=== PATIENT | female | born 1985 | race Caucasian/White ===

== ENCOUNTER 2018-06-18 17:08 | Inpatient (IN) | payer MEDICAID ==
[2018-06-18 20:58] LABS: ADD MAN DIFF? NO
[2018-06-18 20:59] LABS: BASOPHILS % 0.4 % (0.0-2.0); EOSINOPHILS # 0.1 10^3/ul (0.0-0.5); EOSINOPHILS % 1.1 % (0.0-7.0); HEMATOCRIT 36.7 % (37.0-47.0); HEMOGLOBIN 12.4 g/dl (12.0-16.0); LYMPHOCYTES # 1.8 10^3/ul (0.8-2.9); LYMPHOCYTES % 21.7 % (15.0-51.0); MEAN CORPUSCULAR HGB CONC 33.8 g/dl (32.0-37.0); MEAN CORPUSCULAR VOLUME 91.8 fl (82.0-101.0); MONOCYTE # 0.6 10^3/ul (0.3-0.9); MONOCYTES % 6.7 % (0.0-11.0); NEUTROPHIL # 5.8 10^3/ul (1.6-7.5); NEUTROPHILS % 69.6 % (39.0-77.0); PLATELET COUNT 194 10^3/UL (140-415); RED CELL DISTRIBUTION WIDTH 13.3 % (11.5-14.5)
[2018-06-18 20:59] LABS: WHITE BLOOD COUNT 8.3 10^3/ul (4.8-10.8)
[2018-06-18] MEDS ORDERED: METHYLERGONOVINE 0.2 MG INJ IM (21:00)
[2018-06-18] MEDS ORDERED: MISOPROSTOL 200 MCG TAB PR (21:00)
[2018-06-18] MEDS ORDERED: OXYTOCIN 30 UNITS/LR 500 ML IV (21:00)
[2018-06-18] MEDS ORDERED: LIDOCAINE 1% (MPF) 30 ML INJ INJ (21:00)
[2018-06-18] MEDS ORDERED: MISOPROSTOL 100 MCG TAB PO (21:00)
[2018-06-18] MEDS ORDERED: CARBOPROST 250 MCG INJ IM (21:00)
[2018-06-18] MEDS: MISOPROSTOL 50 MCG CAPSULE PO (21:02)
[2018-06-18 21:07] LABS: INR 0.89; PROTIME 12.1 Sec (11.9-14.9); PT RATIO 0.9
[2018-06-18 21:08] LABS: PARTIAL THROMBOPLASTIN TIME 27.5 Sec (23.0-35.0)
[2018-06-18] MEDS: LACTATED RINGER'S 1,000 ML IV (21:09)
[2018-06-19] MEDS: MISOPROSTOL 50 MCG CAPSULE PO ×2 (01:03→05:10)
[2018-06-19] MEDS: LACTATED RINGER'S 1,000 ML IV ×3 (03:44→11:34)
[2018-06-19] MEDS ORDERED: FENTAnyl 2MCG/ML-ROPIV 0.2% 100 ML (11:02)
[2018-06-19] MEDS ORDERED: FENTAnyl 2MCG/ML-ROPIV 0.2% 100 ML BAG EPI (11:30)
[2018-06-19] MEDS ORDERED: NALOXONE (0.4 MG/ML) INJ IV (11:30)
[2018-06-19] MEDS ORDERED: NACL 0.9% 3 ML SYG IV (14:30)
[2018-06-19] MEDS ORDERED: MISOPROSTOL 200 MCG TAB PR (14:30)
[2018-06-19] MEDS ORDERED: OXYTOCIN 30 UNITS/LR 500 ML IV (14:30)
[2018-06-19] MEDS ORDERED: CARBOPROST 250 MCG INJ IM (14:30)
[2018-06-19] MEDS: OXYTOCIN 30 UNITS/LR 500 ML IV ×3 (14:45→20:48)
[2018-06-19] MEDS: OXYCODONE/ASPIRIN (4.88/325) TAB PO (20:47)
[2018-06-19] MEDS: IBUPROFEN 600 MG TAB PO ×2 (20:47→23:38)
[2018-06-19 22:14] LABS: RAPID PLASMA REAGIN NONREACTIVE (NR)
[2018-06-19] MEDS: SENNA/DOCUSATE NA (8.6MG/50MG) TAB PO (23:43)
[2018-06-20] MEDS: IBUPROFEN 600 MG TAB PO ×3 (05:40→17:23)
[2018-06-20 07:34] LABS: ADD MAN DIFF? NO
[2018-06-20 07:43] LABS: WHITE BLOOD COUNT 10.1 10^3/ul (4.8-10.8)
[2018-06-20 07:43] LABS: BASOPHILS % 0.2 % (0.0-2.0); EOSINOPHILS # 0.1 10^3/ul (0.0-0.5); EOSINOPHILS % 1.1 % (0.0-7.0); HEMOGLOBIN 12.1 g/dl (12.0-16.0); LYMPHOCYTES # 1.5 10^3/ul (0.8-2.9); LYMPHOCYTES % 14.5 % (15.0-51.0); MEAN CORPUSCULAR HEMOGLOBIN 30.4 pg (29.0-33.0); MEAN CORPUSCULAR HGB CONC 32.7 g/dl (32.0-37.0); MEAN PLATELET VOLUME 11.6 fl (7.4-10.4); MONOCYTE # 0.6 10^3/ul (0.3-0.9); MONOCYTES % 5.8 % (0.0-11.0); NEUTROPHIL # 7.9 10^3/ul (1.6-7.5); NEUTROPHILS % 78.1 % (39.0-77.0); PLATELET COUNT 156 10^3/UL (140-415); RED BLOOD COUNT 3.98 10^6/ul (4.20-5.40); RED CELL DISTRIBUTION WIDTH 13.4 % (11.5-14.5)
[2018-06-20] MEDS: SENNA/DOCUSATE NA (8.6MG/50MG) TAB PO ×2 (09:08→21:07)
[2018-06-20] MEDS: OXYCODONE/ASPIRIN (4.88/325) TAB PO (22:35)
[2018-06-21] MEDS: IBUPROFEN 600 MG TAB PO ×3 (00:02→12:31)
[2018-06-21] MEDS: SENNA/DOCUSATE NA (8.6MG/50MG) TAB PO (09:36)
== END 2018-06-21 15:15 | disposition home or self-care (01) | DRG 807 ==
LOC: OBT 17:08 → PP1 06-19 19:46 → L-D 17:09 → OBT 18:20 → L-D 18:20
PROVIDERS: Obstetrics & Gynecology
PROC: 10E0XZZ Delivery of Products of Conception, External Approach (ICD-10-PCS; principal; 2018-06-19)
DX: O13.4 Gestational [pregnancy-induced] hypertension without significant proteinuria, complicating childbirth (principal); Z37.0 Single live birth; O69.81X0 Labor and delivery complicated by cord around neck, without compression, not applicable or unspecified; O77.0 Labor and delivery complicated by meconium in amniotic fluid; Z3A.40 40 weeks gestation of pregnancy; Z23 Encounter for immunization
CPT/HCPCS: 62319; 76815; 76818; 85025; 85610; 85730; 86592; 86850; 86900; 86901; 90686; 99464